=== PATIENT | male | born 1960 | race African-American/Black ===

== ENCOUNTER 2017-04-25 20:32 | Inpatient (IN) | payer SELFPAY ==
[2017-04-25] MEDS ORDERED: HYDRALAZINE HCL INJ/PF 20 MG/1 ML SDV IV ONE (20:53)
--- NOTE | 2017-04-25 20:56 | ER Document Report ---
ED General - General Chief Complaint: Breathing Difficulty Stated Complaint: DIFFICULTY BREATHING Time Seen by Provider: 04/25/17 20:52 Notes: Patient is a 56-year-old male without known past medical history who presents with acute onset of shortness of breath approximately 1 hour prior to arrival. Patient states that he is watching television he acutely became very short of breath and having associated diaphoresis. He states that he tried to calm himself down by walking but this did not seem to relieve his symptoms. He called a friend who noted that he started extremely short of breath on the phone. The friend came over the house and found the patient diaphoretic and very short of breath, prompting them to bring him to the emergency department. The patient denies any history of similar symptoms in the past. Nothing seems to improve or worsen his symptoms. He denies any known history of congestive heart failure for hypertension. He denies any chest pain, headache, or pain radiating to the arms, jaw or back. He has not seen his primary doctor regarding today's concerns. - HPI Onset: Just prior to arrival Onset/Duration: Sudden Quality of pain: No pain Severity: Severe Pain Level: Denies Associated symptoms: Shortness of breath Exacerbated by: Denies Relieved by: Denies Similar symptoms previously: No Recently seen / treated by doctor: No - Related Data Allergies/Adverse Reactions: No Known Allergies Allergy (Verified 04/25/17 21:11) Past Medical History - General Information source: Patient - Social History Smoking Status: Never Smoker Frequency of alcohol use: None Drug Abuse: None Lives with: Spouse/Significant other Family History: Reviewed & Not Pertinent Pulmonary Medical History: Reports: Hx Asthma, Hx Pneumonia - Immunizations Hx Diphtheria, Pertussis, Tetanus Vaccination: Yes Hx Pneumococcal Vaccination: 05/18/12 Review of Systems - Review of Systems Notes: Constitutional: Negative for fever. HENT: Negative for sore throat. Eyes: Negative for visual changes. Cardiovascular: Negative for chest pain. Respiratory: Positive for shortness of breath. Gastrointestinal: Negative for abdominal pain, vomiting or diarrhea. Genitourinary: Negative for dysuria. Musculoskeletal: Negative for back pain. Skin: Negative for rash. Neurological: Negative for headaches, weakness or numbness. 10 point ROS negative except as marked above and in HPI. Physical Exam - Vital signs Vitals: Resp Pulse Ox 18 98 04/25/17 20:40 04/25/17 20:40 Interpretation: Hypertensive, Tachycardic Notes: PHYSICAL EXAMINATION: GENERAL: Appears uncomfortable, diaphoretic, moderate respiratory distress HEAD: Atraumatic, normocephalic. EYES: Pupils equal round and reactive to light, extraocular movements intact, sclera anicteric, conjunctiva are normal. ENT: nares patent, oropharynx clear without exudates. Moist mucous membranes. NECK: Normal range of motion, supple without lymphadenopathy LUNGS: Moderate tachypnea, no retractions. Appears uncomfortable in his work of breathing. HEART: Regular tachycardia without murmurs ABDOMEN: Soft, nontender, normoactive bowel sounds. No guarding, no rebound. No masses appreciated. EXTREMITIES: Normal range of motion, trace edema in the bilateral lower extremities that is equal and symmetric. No cyanosis. NEUROLOGICAL: No focal neurological deficits. Moves all extremities spontaneously and on command. PSYCH: Moderately anxious SKIN: Warm, Dry, normal turgor, no rashes or lesions noted. Course - Re-evaluation Re-evalutation: 04/25/17 20:54 Patient presents with complaints of severe shortness of breath, is visibly diaphoretic and mild tachypneic at time of presentation. His blood pressure is markedly elevated at 220 /117 which is symmetric in the bilateral upper extremities. He is not complaining of any chest pain and denies any symptoms that would suggest an acute aortic dissection. He denies a known history of hypertension although admits he does not of her primary care doctor and does not regularly follow with any medical provider where he would know his baseline blood pressure readings. Other than appearing diaphoretic and mildly short of breath the patient overall well in appearance. Examination is overall unremarkable. However given the patient's acute onset of shortness of breath associated diaphoresis as well as his markedly elevated blood pressure, will proceed with IV blood pressure control using hydralazine, obtain a broad- spectrum of labs, chest x-ray and reassess the patient frequently. He is in guarded condition at this time. 04/25/17 21:36 Patient states his work of breathing is much better he does appear clinically improved. Blood pressure is improving now down to 187 and 127. Chest x-ray shows marked cardiac enlargement with associated vascular congestion but no overt pulmonary edema. I suspect that the patient's presentation was secondary to his markedly elevated blood pressure in conjunction with baseline congestive heart failure that has been untreated. He was started on nitroglycerin infusion to maintain blood pressure titration, IV furosemide for diuresis, and I will discuss with the hospitalist for admission after results of all additional laboratories and an additional period of clinical monitoring has been completed. 04/25/17 22:38 Patient continues to feel much improved. His blood pressure has increasing improved now down to 166 and 77. He no longer has any acute shortness of breath. His troponin is in the indeterminate range and is likely chronically elevated secondary to his cardiac dysfunction. Will discuss with hospitalist for admission. 04/25/17 22:50 To the chart I discussed this case with Dr. Lauren and he has accepted this patient for admission. The patient's blood pressure has come down significantly into the 1 teens and we are now holding the nitro drip to allow the blood pressure stabilize. - Vital Signs Vital signs: Temp Pulse Resp BP Pulse Ox 97.8 F 95 19 159/95 H 97 04/26/17 01:00 04/25/17 20:46 04/26/17 03:01 04/26/17 03:01 04/26/17 03:01 - Laboratory Result Diagrams: 04/25/17 20:45 04/25/17 21:20 Laboratory results interpreted by me: 04/25/17 04/25/17 04/25/17 20:45 21:20 21:20 WBC 13.5 H MCH 26.7 L RDW 16.0 H Absolute Lymphocytes 4.9 H Chloride 110 H Creatinine 1.33 H Est GFR (Non-Af Amer) 56 L Creatine Kinase 675 H CK-MB (CK-2) 04/25/17 21:20 WBC MCH RDW Absolute Lymphocytes Chloride Creatinine Est GFR (Non-Af Amer) Creatine Kinase CK-MB (CK-2) 5.22 H - Diagnostic Test Radiology reviewed: Image reviewed, Reports reviewed Radiology results interpreted by me: 04/25/17 21:37 Chest x-ray: Cardiomegaly, vascular congestion - EKG Interpretation by Me Additional EKG results interpreted by me: 04/25/17 20:56 Normal sinus rhythm. Rate 93. No ST elevations or depressions. QTC 478. Motion artifact is present. Critical Care Note - Critical Care Note Total time excluding time spent on procedures (mins): 36 Comments: Critical care time spent obtaining history from patient or surrogate, discussions with consultants, development of treatment plan with patient or surrogate, evaluation of patient's response to treatment, examination of patient , ordering and performing treatments and interventions, ordering and review of laboratory studies, re-evaluation of patient's condition, ordering and review of radiographic studies and review of old charts Discharge - Discharge Clinical Impression: Hypertensive emergency, Elevated troponin, Respiratory distress Congestive heart failure Qualifiers: Heart failure type: unspecified Heart failure chronicity: acute Qualified Code( s): I50.9 - Heart failure, unspecified Condition: Fair Disposition: ADMITTED INPATIENT Admitting Provider: [facility] Admitted: [facility]
[2017-04-25 21:05] LABS: VENOUS BLOOD BASE EXCESS 0.3 mmol/L; VENOUS BLOOD PCO2 45.8 mmHg (35-63); VENOUS BLOOD PH 7.37 (7.30-7.42)
[2017-04-25 21:07] LABS: ABSOLUTE BASOPHILS # (AUTO) 0.1 10^3/uL (0.0-0.2); ABSOLUTE EOSINOPHILS # (AUTO) 0.4 10^3/uL (0.0-0.6); ABSOLUTE LYMPHOCYTES (AUTO) 4.9 10^3/uL (0.5-4.7); ABSOLUTE MONOCYTES (AUTO) 0.7 10^3/uL (0.1-1.4); ABSOLUTE NEUT (AUTO) 7.3 10^3/uL (1.7-8.2); EOSINOPHILS % (AUTO) 3.1 % (0-6); HEMATOCRIT 42.3 % (37.9-51.0); HEMOGLOBIN 13.8 g/dL (13.5-17.0); LYMPHOCYTES % (AUTO) 36.4 % (13-45); MEAN CORPUSCULAR HEMOGLOBIN 26.7 pg (27.0-33.4); MEAN CORPUSCULAR HGB CONC 32.7 g/dL (32.0-36.0); MEAN CORPUSCULAR VOLUME 82 fl (80-97); MONOCYTES % (AUTO) 5.5 % (3-13); PLATELET COUNT 244 10^3/uL (150-450); RED BLOOD COUNT 5.18 10^6/uL (4.35-5.55); TOTAL CELLS COUNTED % (AUTO) 100 %; WHITE BLOOD COUNT 13.5 10^3/uL (4.0-10.5)
--- NOTE | 2017-04-25 21:08 | RADIOLOGY REPORT (SQ) ---
EXAM DESCRIPTION: CHEST SINGLE VIEW COMPLETED DATE/TIME: 04/25/2017 9:00 pm REASON FOR STUDY: difficulty breathing COMPARISON: None. NUMBER OF VIEWS: One view. TECHNIQUE: Single frontal radiographic view of the chest acquired. LIMITATIONS: None. FINDINGS: LUNGS AND PLEURA: No opacities, masses or pneumothorax. No pleural effusion. MEDIASTINUM AND HILAR STRUCTURES: No masses or contour abnormality. HEART AND VASCULATURE: Cardiac enlargement. Vascular congestion. BONES: No acute findings. HARDWARE: None in the chest. OTHER: No other significant finding. IMPRESSION: CARDIAC ENLARGEMENT. VASCULAR CONGESTION. TECHNICAL DOCUMENTATION: JOB ID: [id number] MD [employer]- All Rights Reserved Reading location - IP/workstation name: [email or web address]
[2017-04-25] MEDS ORDERED: NITROGLYCERIN/D5W 50 MG/250 ML RTUINJ IV PRN (21:35)
[2017-04-25] MEDS ORDERED: FUROSEMIDE INJ/PF 20 MG/2 ML SDV IV ONE (21:36)
[2017-04-25 21:46] LABS: ANION GAP 12 (5-19); BLOOD UREA NITROGEN 17 mg/dL (7-20); CALCIUM 9.6 mg/dL (8.4-10.2); CARBON DIOXIDE 23 mmol/L (22-30); CHLORIDE 110 mmol/L (98-107); GLUCOSE 102 mg/dL (75-110); POTASSIUM 4.6 mmol/L (3.6-5.0); SODIUM 144.9 mmol/L (137-145)
[2017-04-25] MEDS ORDERED: HYDRALAZINE HCL INJ/PF 20 MG/1 ML SDV IV PRN (22:50)
[2017-04-25] MEDS ORDERED: MAG HYDROX/AL HYDROX/SIMETH SUSP 30 ML UDCUP PO PRN (22:51)
[2017-04-25] MEDS ORDERED: MAGNESIUM HYDROXIDE SUSP 30 ML UDCUP PO PRN (22:51)
[2017-04-25] MEDS ORDERED: ACETAMINOPHEN 325 MG TABLET PO PRN (22:51)
[2017-04-25] MEDS ORDERED: NITROGLYCERIN 10 MG (0.4 MG/HR) PATCH.TD24 TD ONE (23:15)
--- NOTE | 2017-04-26 03:23 | PDOC H&P ---
History of Present Illness Admission Date/PCP: 04/25/17 22:59 Patient complains of: Shortness of breath History of Present Illness: SANTOS CIFUENTES is a 56 year old male with a past medical history of hypertension , systolic heart failure and tobacco dependence. Patient presents after 6 hours of excessive shortness of breath and chest tightness associated with cough with clear sputum only. Patient denies fever, rhinorrhea, sore throat or acid reflux. In the emergency room is found to have a blood pressure of 228/ 117 he is ordered Lasix, hydralazine and referred to the hospitalist for admission. Patient currently admits feeling better, denying chest pain nausea vomiting or palpitations. He admits several episodes in the past but never so severe. His only medications are aspirin, denying [id number] medications. Past Medical History Cardiac Medical History: Reports: Congestive Heart Failure, Hypertension Pulmonary Medical History: Reports: Asthma, Pneumonia Social History Smoking Status: Current Every Day Smoker Cigarettes Packs Per Day: 1 Frequency of Alcohol Use: None Drugs: None - Advance Directive Resuscitation Status: Full Code Family History Family History: Hypertension, Other - Lupus Parental Family History Reviewed: Yes Children Family History Reviewed: Yes Sibling(s) Family History Reviewed.: Yes Medication/Allergy Home Medications: Aspirin [Aspirin 81 mg Chewable Tablet] 81 mg PO DAILY 04/25/17 Allergies/Adverse Reactions: No Known Allergies Allergy (Verified 04/25/17 21:11) Review of Systems Constitutional: ABSENT: chills, fever(s), headache(s), weight gain, weight loss Eyes: ABSENT: visual disturbances Ears: ABSENT: hearing changes Cardiovascular: ABSENT: chest pain, dyspnea on exertion, edema, orthropnea, palpitations Respiratory: ABSENT: cough, hemoptysis Gastrointestinal: ABSENT: abdominal pain, constipation, diarrhea, hematemesis, hematochezia, nausea, vomiting Genitourinary: ABSENT: dysuria, hematuria Musculoskeletal: ABSENT: joint swelling Integumentary: ABSENT: rash, wounds Neurological: ABSENT: abnormal gait, abnormal speech, confusion, dizziness, focal weakness, syncope Psychiatric: ABSENT: anxiety, depression, homidical ideation, suicidal ideation Endocrine: ABSENT: cold intolerance, heat intolerance, polydipsia, polyuria Hematologic/Lymphatic: ABSENT: easy bleeding, easy bruising Physical Exam Vital Signs: Temp Pulse Resp BP Pulse Ox 97.8 F 95 16 168/98 H 97 04/26/17 01:00 04/25/17 20:46 04/26/17 01:31 04/26/17 01:31 04/26/17 01:31 Intake & Output 04/24/17 04/25/17 04/26/17 11:59 11:59 11:59 Output Total 600 Balance -600 General appearance: PRESENT: cooperative, mild distress, obese. ABSENT: hard of hearing Head exam: PRESENT: atraumatic, normocephalic Eye exam: PRESENT: conjunctiva pink, EOMI, PERRLA. ABSENT: scleral icterus Ear exam: PRESENT: normal external ear exam Mouth exam: PRESENT: moist, tongue midline Neck exam: PRESENT: JVD. ABSENT: carotid bruit, full ROM, lymphadenopathy, meningismus, thyromegaly Respiratory exam: PRESENT: accessory muscle use, crackles, retraction, symmetrical, tachypnea. ABSENT: rales, rhonchi, wheezes Cardiovascular exam: PRESENT: gallop, RRR, +S1, +S2, tachycardia. ABSENT: diastolic murmur, rubs, systolic murmur Pulses: PRESENT: normal dorsalis pedis pul Vascular exam: PRESENT: normal capillary refill GI/Abdominal exam: PRESENT: normal bowel sounds, soft. ABSENT: distended, guarding, mass, organolmegaly, rebound, tenderness Extremities exam: PRESENT: +1 edema Neurological exam: PRESENT: alert, awake, oriented to person, oriented to place , oriented to time, oriented to situation, CN II-XII grossly intact. ABSENT: motor sensory deficit Psychiatric exam: PRESENT: appropriate affect, normal mood. ABSENT: homicidal ideation, suicidal ideation Skin exam: PRESENT: dry, intact, warm. ABSENT: cyanosis, rash Results Impressions: Chest X-Ray 04/25/17 20:48 IMPRESSION: CARDIAC ENLARGEMENT. VASCULAR CONGESTION. Assessment & Plan - Diagnosis (1) Congestive heart failure Qualifiers: Heart failure type: unspecified Heart failure chronicity: acute Qualified Code(s): I50.9 - Heart failure, unspecified Is this a current diagnosis for this admission?: Yes Plan: Monitored bed, IV nitro as needed IV RACHEL inhibitor, hydralazine and loop diuretic. 2D echo initiate beta-toby when compensated. Education consult ordered (2) Hypertensive emergency Is this a current diagnosis for this admission?: Yes Plan: Likely secondary to diastolic failure, evaluate TSH, IV hydralazine, RACHEL inhibitor and loop diuretic. (3) Respiratory distress Is this a current diagnosis for this admission?: Yes Plan: Secondary to congestive heart failure please see #1 (4) Tobacco abuse Is this a current diagnosis for this admission?: Yes Plan: Tobacco Dependence patient received tobacco cessation counseling and offered nicotine replacement options - Time Time Spent: 30 to 50 Minutes - Inpatient Certification Medical Necessity: Need Close Monitoring Due to Risk of Patient Decompensation
[2017-04-26 04:55] LABS: ABSOLUTE BASOPHILS # (AUTO) 0.1 10^3/uL (0.0-0.2); ABSOLUTE EOSINOPHILS # (AUTO) 0.3 10^3/uL (0.0-0.6); ABSOLUTE LYMPHOCYTES (AUTO) 3.9 10^3/uL (0.5-4.7); ABSOLUTE MONOCYTES (AUTO) 0.8 10^3/uL (0.1-1.4); BASOPHILS % (AUTO) 0.7 % (0-2); EOSINOPHILS % (AUTO) 2.2 % (0-6); HEMATOCRIT 38.8 % (37.9-51.0); HEMOGLOBIN 12.6 g/dL (13.5-17.0); LYMPHOCYTES % (AUTO) 32.4 % (13-45); MEAN CORPUSCULAR HEMOGLOBIN 26.6 pg (27.0-33.4); MEAN CORPUSCULAR HGB CONC 32.4 g/dL (32.0-36.0); MEAN CORPUSCULAR VOLUME 82 fl (80-97); MONOCYTES % (AUTO) 6.6 % (3-13); PLATELET COUNT 195 10^3/uL (150-450); RED BLOOD COUNT 4.73 10^6/uL (4.35-5.55); RED CELL DISTRIBUTION WIDTH 15.6 % (11.5-14.0); SEGMENTED NEUTROPHILS % (AUTO) 58.1 % (42-78); TOTAL CELLS COUNTED % (AUTO) 100 %
[2017-04-26 05:13] LABS: ANION GAP 9 (5-19); BLOOD UREA NITROGEN 15 mg/dL (7-20); CALCIUM 9.6 mg/dL (8.4-10.2); CARBON DIOXIDE 25 mmol/L (22-30); CHLORIDE 109 mmol/L (98-107); CREATINE KINASE 543 U/L (55-170); GLUCOSE 97 mg/dL (75-110); POTASSIUM 4.1 mmol/L (3.6-5.0); SODIUM 142.8 mmol/L (137-145)
[2017-04-26 05:25] LABS: CREATINE KINASE MB 4.26 ng/mL (<4.55); TROPONIN I 0.046 ng/mL
[2017-04-26] MEDS: HEPARIN SOD (PORCINE) 5,000 UNIT/ML 1 ML SYRINGE SUBCUT SCH ×3 (05:52→21:21)
[2017-04-26] MEDS ORDERED: INFLUENZA ADLT QUAD (36MOS+) 2017-18 VAC 0.5 ML SYR IM PRN (06:13)
--- NOTE | 2017-04-26 06:27 | EKG REPORT ---
SEVERITY:- ABNORMAL ECG - SINUS RHYTHM BIATRIAL ABNORMALITIES LEFT VENTRICULAR HYPERTROPHY BORDERLINE PROLONGED QT INTERVAL : Confirmed by: Michael Hardy MD 26-Apr-2017 06:26:07
[2017-04-26] MEDS: ASPIRIN 81 MG TABLET, CHEWABLE PO SCH (10:56)
[2017-04-26] MEDS: FUROSEMIDE INJ/PF 40 MG/4 ML SDV IV SCH (10:56)
[2017-04-26 12:18] LABS: CREATINE KINASE MB 4.3 ng/mL (<4.55); TROPONIN I 0.046 ng/mL
--- NOTE | 2017-04-26 13:11 | XCELERA REPORT ---
[address] [address] Transthoracic Echocardiogram Report Name: SANTOS CIFUENTES Age: 56 yrs Gender: Male : 1960 Patient Status: Inpatient Patient Location: [address] [place] [address] Study Date: 04/26/2017 10:19 AM Height: 74 in Weight: 250 lb BSA: 2.4 m2 Procedure: A complete two-dimensional transthoracic echocardiogram was performed (2D, M-mode, spectral and color flow Doppler). The study was technically adequate with some images being suboptimal in quality. Reason For Study: chf exacerbation Ordering Physician: NATE CHISHOLM Performed By: Kayy Orozco Interpretation Summary Left ventricular systolic function is mildly reduced. The Ejection Fraction estimate is 45-50% There is mild concentric left ventricular hypertrophy. The left ventricle is grossly normal size. Doppler measurements suggest pseudonormalized left ventricular relaxation, which is associated with grade II/IV or mild to moderate diastolic dysfunction There is mild global hypokinesis of the left ventricle. The right ventricular systolic function is normal. The left atrium is mildly dilated. The right atrium is normal in size There is a mild amount of mitral regurgitation There is no mitral valve stenosis. There is mild aortic stenosis There is a trace amount of aortic regurgitation Can not R/O Bicuspid valve There is a trace or physiologic amount of tricuspid regurgitation Tricuspid regurgitation jet envelope not well defined to measure RV systolic pressure accurately. The aortic root is not well visualized. The inferior vena cava appeared normal and decreased > 50% with respiration (RAP 5-10 mmHg) There is no pericardial effusion. MMode/2D Measurements & Calculations RVDd: 3.2 cm LVIDd: 5.9 cm FS: 24.6 % Ao root diam: 3.4 cm IVSd: 1.1 cm LVIDs: 4.4 cm EDV(Teich): 170.4 ml LVPWd: 1.1 cm ESV(Teich): 88.5 ml Ao root area: 9.0 cm2 EF(Teich): 48.0 % LA dimension: 4.3 cm Doppler Measurements & Calculations MV E max joyce: MV P1/2t max joyce: Ao V2 max: LV V1 max P.0 cm/sec 118.0 cm/sec 207.5 cm/sec 3.2 mmHg MV A max joyce: MV P1/2t: 56.4 msec Ao max PG: LV V1 max: 46.9 cm/sec 17.2 mmHg 89.3 cm/sec MV E/A: 2.5 MVA(P1/2t): 3.9 cm2 MV dec slope: 612.6 cm/sec2 MV dec time: 0.19 sec PA V2 max: TR max joyce: 80.0 cm/sec 152.0 cm/sec PA max P.6 mmHgTR max P.2 mmHg Left Ventricle The left ventricle is grossly normal size. There is mild concentric left ventricular hypertrophy. Left ventricular systolic function is mildly reduced. The Ejection Fraction estimate is 45-50%. Doppler measurements suggest pseudonormalized left ventricular relaxation, which is associated with grade II/IV or mild to moderate diastolic dysfunction. There is mild global hypokinesis of the left ventricle. Right Ventricle The right ventricle is grossly normal size. There is normal right ventricular wall thickness. The right ventricular systolic function is normal. Atria The right atrium is normal in size. The left atrium is mildly dilated. Interarterial septum not well visualized and not well dopplered. Cannot comment on ASD/PFO presence. Mitral Valve The mitral valve leaflets are sclerotic, but show no functional abnormalities. There is no mitral valve stenosis. There is a mild amount of mitral regurgitation. Aortic Valve The aortic valve is mildly calcified. Can not R/O Bicuspid valve. There is mild aortic stenosis. There is a trace amount of aortic regurgitation. Tricuspid Valve The tricuspid valve is not well visualized, but is grossly normal. There is no tricuspid stenosis. There is a trace or physiologic amount of tricuspid regurgitation. Tricuspid regurgitation jet envelope not well defined to measure RV systolic pressure accurately. Pulmonic Valve The pulmonic valve is not well visualized. Great Vessels The aortic root is not well visualized. The inferior vena cava appeared normal and decreased > 50% with respiration (RAP 5-10 mmHg). Effusions There is no pericardial effusion. : NATE CHISHOLM > Calli Martínez
--- NOTE | 2017-04-26 15:28 | Progress Note ---
Provider Note Provider Note: 56-year-old -[place] man who does not see a doctor on a regular basis with history of hypertension systolic heart failure and nicotine dependence admitted overnight with shortness of breath and chest tightness. Troponin negative. Echocardiogram with EF of 45-50%. Seen and examined this morning and reports feeling fine, he has been ambulating in hallway without oxygen and doing fine. He reports dietary indiscretion. Continue IV Lasix. Will start amlodipine and Toprol and follow-up.
[2017-04-26] MEDS ORDERED: NITROGLYCERIN 10 MG (0.4 MG/HR) PATCH.TD24 TD SCH (22:00)
[2017-04-26] MEDS ORDERED: AMLODIPINE BESYLATE 5 MG TABLET PO SCH (22:00)
[2017-04-26] MEDS ORDERED: ENALAPRILAT DIHYDRATE INJ/PF 1.25 MG/1 ML SDV IV ONE (22:53)
[2017-04-27] MEDS: HEPARIN SOD (PORCINE) 5,000 UNIT/ML 1 ML SYRINGE SUBCUT SCH (05:41)
[2017-04-27 06:17] LABS: CHOLESTEROL 197.73 mg/dL (0-200); TRIGLYCERIDES 118 mg/dL (<150)
[2017-04-27 06:28] LABS: DIRECT LDL 126 mg/dL (<100)
[2017-04-27 09:39] LABS: ALANINE AMINOTRANSFERASE 47 U/L (21-72); ALKALINE PHOSPHATASE 59 U/L (38-126); ASPARTATE AMINO TRANSFERASE 32 U/L (17-59); BILIRUBIN,DIRECT 0.4 mg/dL (0.0-0.4); BILIRUBIN,TOTAL 0.8 mg/dL (0.2-1.3); TOTAL PROTEIN 7.2 g/dL (6.3-8.2)
[2017-04-27] MEDS ORDERED: METOPROLOL SUCCINATE 25 MG TAB.SR.24H PO SCH (10:00)
[2017-04-27] MEDS: ASPIRIN 81 MG TABLET, CHEWABLE PO SCH (10:10)
[2017-04-27] MEDS: FUROSEMIDE INJ/PF 40 MG/4 ML SDV IV SCH (10:10)
--- NOTE | 2017-04-27 12:03 | PDOC DISCHARGE SUMMARY ---
General - Admit/Disc Date/PCP Admission Date/Primary Care Provider: 04/25/17 22:59 Discharge Date: 04/27/17 - Discharge Diagnosis (1) Hypertensive emergency Is this a current diagnosis for this admission?: Yes (2) Acute on chronic diastolic ACC/AHA stage C congestive heart failure Is this a current diagnosis for this admission?: Yes (3) Respiratory distress Is this a current diagnosis for this admission?: Yes (4) Tobacco abuse Is this a current diagnosis for this admission?: Yes - Additional Information Resuscitation Status: Full Code Prescriptions: Amlodipine Besylate [Norvasc 10 mg Tablet] 10 mg PO QHS #30 tablet Aspirin [Aspirin 81 mg Chewable Tablet] 81 mg PO DAILY #30 tab.chew Furosemide [Lasix 40 mg Tablet] 40 mg PO QAM #30 tablet Metoprolol Tartrate [Lopressor 25 mg Tablet] 25 mg PO BID #60 tab Simvastatin [Zocor 20 mg Tablet] 20 mg PO QHS #30 tablet Home Medications: Amlodipine Besylate [Norvasc 10 mg Tablet] 10 mg PO QHS #30 tablet 04/27/17 Aspirin [Aspirin 81 mg Chewable Tablet] 81 mg PO DAILY #30 tab.chew 04/27/17 Furosemide [Lasix 40 mg Tablet] 40 mg PO QAM #30 tablet 04/27/17 Metoprolol Tartrate [Lopressor 25 mg Tablet] 25 mg PO BID #60 tab 04/27/17 Simvastatin [Zocor 20 mg Tablet] 20 mg PO QHS #30 tablet 04/27/17 History of Present Illness History of Present Illness: SANTOS CIFUENTES is a 56 year old male with a past medical history of hypertension , systolic heart failure and tobacco dependence. Patient presents after 6 hours of excessive shortness of breath and chest tightness associated with cough with clear sputum only. Patient denies fever, rhinorrhea, sore throat or acid reflux. In the emergency room is found to have a blood pressure of 228/ 117 he is ordered Lasix, hydralazine and referred to the hospitalist for admission. Patient currently admits feeling better, denying chest pain nausea vomiting or palpitations. He admits several episodes in the past but never so severe. His only medications are aspirin, denying [id number] medications. Hospital Course Hospital Course: Patient is a 56-year-old -[place] man with past medical history of hypertension, congestive heart failure, nicotine dependence, presented to the hospital on April 25, 2017 with complaints of shortness of breath associated associated with a cough and there was no reported fevers. In the emergency room he was found to have a blood pressure 228/117. He was given IV Lasix, started on hydralazine and nitro drips. Does not see a doctor on a regular basis and he does not take any medication. His chest x-ray on admission with evidence of vascular congestion. He has been doing clinically fine this admission. Did not require oxygen. He was started on amlodipine and Lopressor this admission and continued on Lasix. He did report dietary indiscretion and takes salt with his foods. He was advised on medical and diet compliance. Prescription given for Lasix, amlodipine Lopressor and Zocor on discharge. He was seen by the transition nurse and denies help. procedure manager was asked to assist with him with his medications. Physical Exam Vital Signs: Temp Pulse Resp BP Pulse Ox 98.3 F 64 16 157/93 H 100 04/27/17 07:30 04/27/17 07:30 04/27/17 07:30 04/27/17 07:30 04/27/17 07:30 Intake & Output 04/26/17 04/27/17 04/28/17 06:59 06:59 06:59 Intake Total 3 1174 Output Total 600 Balance -597 1174 Weight 111.2 kg 104 kg General appearance: PRESENT: no acute distress, obese Head exam: PRESENT: atraumatic, normocephalic Eye exam: PRESENT: EOMI Mouth exam: PRESENT: moist, neck supple Neck exam: PRESENT: full ROM Respiratory exam: PRESENT: clear to auscultation deborah, unlabored. ABSENT: accessory muscle use Cardiovascular exam: PRESENT: RRR GI/Abdominal exam: PRESENT: normal bowel sounds, soft Rectal exam: PRESENT: deferred Extremities exam: PRESENT: pedal edema Musculoskeletal exam: PRESENT: full ROM Neurological exam: PRESENT: alert, oriented to person, oriented to place, oriented to time, oriented to situation Psychiatric exam: PRESENT: appropriate affect Skin exam: PRESENT: dry, warm Results Laboratory Results: 04/26/17 04:45 04/26/17 04:45 04/27/17 04/27/17 05:25 05:25 Total Bilirubin 0.8 AST 32 ALT 47 Alkaline Phosphatase 59 Total Protein 7.2 Albumin 4.0 Triglycerides 118 Cholesterol 197.73 LDL Cholesterol Direct 126 H VLDL Cholesterol 24.0 HDL Cholesterol 49 04/26/17 04/26/17 04/26/17 04:45 04:45 11:30 Creatine Kinase 543 H 600 H CK-MB (CK-2) 4.26 Troponin I 0.046 04/26/17 11:30 Creatine Kinase CK-MB (CK-2) 4.30 Troponin I 0.046 Impressions: Chest X-Ray 04/25/17 20:48 IMPRESSION: CARDIAC ENLARGEMENT. VASCULAR CONGESTION. Qualifiers - * PATEINT BEING DISCHARGED WITH ANY OF THE FOLLOWING DIAGNOSIS?: No, Heart Failure VTE patient discharged on overlapping Therapy?: Yes [place] Pt being discharged on Aspirin therapy?: Yes [place] Pt being discharged on Statins?: Yes HF Pt being discharged on ACEI for LVEF less than 40%?: No Reason(s) for not prescribing ACEI:: Not indicated HF Pt being discharged on ARBS for LVEF less than 40%?: No Reason(s) for not prescribing ARBS:: Not indicated HF Pt with Afib discharged with Warfarin?: No Reason(s) for not prescribing Warfarin:: Not indicated HF Pt discharged on evidence-based Beta Rosemarie:: Yes Plan Time Spent: Greater than 30 Minutes
[2017-04-27 13:05] VITALS: BP 141/75
[2017-04-27] MEDS ORDERED: AMLODIPINE BESYLATE 10 MG TABLET PO SCH (22:00)
== END 2017-04-27 13:29 | disposition home or self-care (01) | DRG 304 ==
LOC: ER 20:32 → EH 22:59 → 3S 04-26 05:24
PROVIDERS: ADMIT Internal Medicine; ATTEND Internal Medicine
PROC: 3E0234Z Introduction of Serum, Toxoid and Vaccine into Muscle, Percutaneous Approach (ICD-10-PCS; principal; 2017-04-27)
DX: I16.1 Hypertensive emergency (principal); I50.23 Acute on chronic systolic (congestive) heart failure; I11.0 Hypertensive heart disease with heart failure; F17.210 Nicotine dependence, cigarettes, uncomplicated; Z82.49 Family history of ischemic heart disease and other diseases of the circulatory system; Z23 Encounter for immunization
CPT/HCPCS: 36415; 71045; 80048; 80061; 80076; 82550; 82553; 82803; 83036; 83880; 84443; 84484; 85025; 90686; 93005; 93010; 93306; 96374; 96375; 99291; J0360; J1644; J1940; J3490

== ENCOUNTER → 2017-10-16 | Outpatient (CLI) | payer OTHER ==
[2017-10-16 11:45] LABS: ANION GAP 11 (5-19); BLOOD UREA NITROGEN 14 mg/dL (7-20); CALCIUM 9.6 mg/dL (8.4-10.2); CARBON DIOXIDE 28 mmol/L (22-30); CHLORIDE 108 mmol/L (98-107); CHOLESTEROL 126.14 mg/dL (0-200); GLUCOSE 64 mg/dL (75-110); POTASSIUM 4.6 mmol/L (3.6-5.0); TRIGLYCERIDES 82 mg/dL (<150)
[2017-10-16 11:56] LABS: DIRECT LDL 61 mg/dL (<100)
== END ==
LOC: CCC 09:29
DX: Z12.5 Encounter for screening for malignant neoplasm of prostate (principal); Z12.9 Encounter for screening for malignant neoplasm, site unspecified; I10 Essential (primary) hypertension; E78.5 Hyperlipidemia, unspecified; I50.9 Heart failure, unspecified
CPT/HCPCS: 36415; 80048; 80061; 83036; 84153; 84443

== ENCOUNTER → 2017-12-18 | Outpatient (CLI) | payer OTHER ==
[2017-12-18 10:27] LABS: ANION GAP 13 (5-19); BLOOD UREA NITROGEN 12 mg/dL (7-20); CALCIUM 9.8 mg/dL (8.4-10.2); CARBON DIOXIDE 28 mmol/L (22-30); CHLORIDE 105 mmol/L (98-107); GLUCOSE 80 mg/dL (75-110); POTASSIUM 4.4 mmol/L (3.6-5.0); SODIUM 145.9 mmol/L (137-145)
== END ==
LOC: OD 09:16
DX: I10 Essential (primary) hypertension (principal); E78.5 Hyperlipidemia, unspecified
CPT/HCPCS: 36415; 80048; 83036

== ENCOUNTER → 2018-04-09 | Outpatient (CLI) | payer OTHER ==
[2018-04-09 10:18] LABS: ANION GAP 10 (5-19); BLOOD UREA NITROGEN 16 mg/dL (7-20); CALCIUM 9.7 mg/dL (8.4-10.2); CARBON DIOXIDE 28 mmol/L (22-30); CHLORIDE 109 mmol/L (98-107); GLUCOSE 89 mg/dL (75-110); POTASSIUM 4.7 mmol/L (3.6-5.0); SODIUM 146.6 mmol/L (137-145)
== END ==
LOC: CCC 09:10
DX: I12.9 Hypertensive chronic kidney disease with stage 1 through stage 4 chronic kidney disease, or unspecified chronic kidney disease (principal); N18.9 Chronic kidney disease, unspecified; R73.03 Prediabetes
CPT/HCPCS: 36415; 80048; 83036

== ENCOUNTER → 2018-07-23 | Outpatient (CLI) | payer OTHER ==
[2018-07-23 10:31] LABS: ANION GAP 11 (5-19); BLOOD UREA NITROGEN 12 mg/dL (7-20); CALCIUM 9.6 mg/dL (8.4-10.2); CARBON DIOXIDE 26 mmol/L (22-30); CHLORIDE 109 mmol/L (98-107); GLUCOSE 85 mg/dL (75-110); POTASSIUM 4.2 mmol/L (3.6-5.0); SODIUM 146.4 mmol/L (137-145)
== END ==
LOC: CCC 08:58
DX: R73.03 Prediabetes (principal); I10 Essential (primary) hypertension; N18.9 Chronic kidney disease, unspecified
CPT/HCPCS: 36415; 80048; 83036

== ENCOUNTER → 2018-10-15 | Outpatient (CLI) | payer OTHER ==
[2018-10-15 10:04] LABS: ABSOLUTE BASOPHILS # (AUTO) 0.1 10^3/uL (0.0-0.2); ABSOLUTE EOSINOPHILS # (AUTO) 0.2 10^3/uL (0.0-0.6); ABSOLUTE LYMPHOCYTES (AUTO) 2.9 10^3/uL (0.5-4.7); ABSOLUTE MONOCYTES (AUTO) 1.2 10^3/uL (0.1-1.4); ABSOLUTE NEUT (AUTO) 10.3 10^3/uL (1.7-8.2); BASOPHILS % (AUTO) 0.7 % (0-2); HEMATOCRIT 40.9 % (37.9-51.0); HEMOGLOBIN 13.5 g/dL (13.5-17.0); LYMPHOCYTES % (AUTO) 19.7 % (13-45); MEAN CORPUSCULAR HEMOGLOBIN 27.2 pg (27.0-33.4); MEAN CORPUSCULAR HGB CONC 32.9 g/dL (32.0-36.0); MEAN CORPUSCULAR VOLUME 83 fl (80-97); PLATELET COUNT 220 10^3/uL (150-450); RED BLOOD COUNT 4.94 10^6/uL (4.35-5.55); RED CELL DISTRIBUTION WIDTH 14.8 % (11.5-14.0); SEGMENTED NEUTROPHILS % (AUTO) 70.6 % (42-78); TOTAL CELLS COUNTED % (AUTO) 100 %; WHITE BLOOD COUNT 14.5 10^3/uL (4.0-10.5)
[2018-10-15 10:29] LABS: ALBUMIN 4.5 g/dL (3.5-5.0); ALKALINE PHOSPHATASE 62 U/L (38-126); ASPARTATE AMINO TRANSFERASE 41 U/L (17-59); BILIRUBIN,DIRECT 0.2 mg/dL (0.0-0.4); BILIRUBIN,TOTAL 0.4 mg/dL (0.2-1.3); CHOLESTEROL 119.94 mg/dL (0-200); TOTAL PROTEIN 7.4 g/dL (6.3-8.2); TRIGLYCERIDES 73 mg/dL (<150)
[2018-10-15 10:40] LABS: DIRECT LDL 73 mg/dL (<100)
== END ==
LOC: OD 09:00
DX: I10 Essential (primary) hypertension (principal); E78.5 Hyperlipidemia, unspecified; Z79.899 Other long term (current) drug therapy
CPT/HCPCS: 36415; 80061; 80076; 84153; 84443; 85025

== ENCOUNTER → 2019-03-11 | Outpatient (CLI) | payer OTHER ==
[2019-03-11 09:35] LABS: ABSOLUTE BASOPHILS # (AUTO) 0.1 10^3/uL (0.0-0.2); ABSOLUTE EOSINOPHILS # (AUTO) 0.2 10^3/uL (0.0-0.6); ABSOLUTE LYMPHOCYTES (AUTO) 3.1 10^3/uL (0.5-4.7); ABSOLUTE MONOCYTES (AUTO) 0.9 10^3/uL (0.1-1.4); ABSOLUTE NEUT (AUTO) 7.7 10^3/uL (1.7-8.2); BASOPHILS % (AUTO) 0.9 % (0-2); EOSINOPHILS % (AUTO) 1.9 % (0-6); MEAN CORPUSCULAR HEMOGLOBIN 27.9 pg (27.0-33.4); MEAN CORPUSCULAR HGB CONC 33.3 g/dL (32.0-36.0); MEAN CORPUSCULAR VOLUME 84 fl (80-97); MONOCYTES % (AUTO) 7.2 % (3-13); PLATELET COUNT 224 10^3/uL (150-450); RED BLOOD COUNT 5.02 10^6/uL (4.35-5.55); TOTAL CELLS COUNTED % (AUTO) 100 %; WHITE BLOOD COUNT 12.1 10^3/uL (4.0-10.5)
[2019-03-11 09:51] LABS: ANION GAP 10 (5-19); BLOOD UREA NITROGEN 15 mg/dL (7-20); CALCIUM 9.9 mg/dL (8.4-10.2); CARBON DIOXIDE 27 mmol/L (22-30); CHLORIDE 106 mmol/L (98-107); GLUCOSE 96 mg/dL (75-110); POTASSIUM 4.3 mmol/L (3.6-5.0); TRIGLYCERIDES 50 mg/dL (<150)
[2019-03-11 10:02] LABS: DIRECT LDL 59 mg/dL (<100)
== END ==
LOC: OD 08:17
DX: I10 Essential (primary) hypertension (principal); E78.5 Hyperlipidemia, unspecified; D72.829 Elevated white blood cell count, unspecified
CPT/HCPCS: 36415; 80048; 80061; 83036; 85025